=== PATIENT | female | born 1935 | race Caucasian/White ===

== ENCOUNTER 2023-02-16 14:18 | Emergency (ER) | payer OTHER ==
[~2023-02-16] VITALS: Ht 154.9 cm; Wt 49.0 kg
[2023-02-16 14:24] VITALS: O2SAT 99
[2023-02-16] MEDS ORDERED: SODIUM CHLORIDE 0.9% 1,000 ML IV ONE (15:00)
[2023-02-16 15:30] LABS: BASOPHILS % 0.1 % (0.0-2.0); EOSINOPHILS % 0.1 % (0.0-5.0); HEMATOCRIT. 39.2 % (36.0-48.0); HEMOGLOBIN. 13.3 g/dL (12.0-16.0); LYMPHOCYTES % 8.8 % (20.0-50.0); MEAN CORPUSCULAR HEMOGLOBIN 31.1 pg (28.0-32.0); MEAN CORPUSCULAR VOLUME 91.8 fL (81.0-99.0); MONOCYTES % 2.5 % (2.0-8.0); NEUTROPHILS % 88.5 % (40.0-76.0); PLATELET 169 x1000/uL (130-400); RED BLOOD CELL COUNT 4.27 mill/uL (4.2-5.4); RED CELL DISTRIBUTION WIDTH 14.1 % (11.6-14.6)
[2023-02-16 15:40] LABS: CHLORIDE 109 mEq/L (98-107); PROTHROMBIN TIME 10.9 sec (9.6-11.0)
[2023-02-16] MEDS ORDERED: ACETAMINOPHEN 325MG TABLET PO ONE (16:15)
[2023-02-16] MEDS ORDERED: POLYETHYLENE GLYCOL-ELECTROLYTE 4000ML PO ONE (16:15)
[2023-02-16] MEDS ORDERED: MAGNESIUM CITRATE 300ML SOLUTION PO NR (17:30)
[2023-02-16] MEDS ORDERED: POLYETHYLENE GLYCOL 3350 (17GM) 1 DOSE PACK PO NR (17:45)
[2023-02-16 18:30] VITALS: TEMP 98.1
[2023-02-16 19:06] LABS: CLARITY URINE TURBID (CLEAR); COLOR URINE YELLOW (YELLOW); KETONES URINE NEGATIVE (NEGATIVE); LEUKOCYTE ESTERASE URINE 2+ (NEGATIVE); NITRITE URINE NEGATIVE (NEGATIVE); OCCULT BLOOD URINE 3+ (NEGATIVE); PROTEIN URINE 1+ (NEGATIVE); SPECIFIC GRAVITY URINE 1.021 (1.005-1.030)
[2023-02-16] MEDS ORDERED: DOCU-138 MT (21:07)
[2023-02-16] MEDS ORDERED: TOPUD MT (21:07)
[2023-02-16] MEDS ORDERED: SENN25TA MT (21:07)
[2023-02-17] MEDS ORDERED: CEFTRIAXONE 1GM PREMIX 50 ML IV ONE (00:30)
[2023-02-17 02:00] VITALS: BP 137/65; PULSE 79; RESP 14
== END 2023-02-17 03:08 | disposition short-term general hospital (02) ==
LOC: ER 16:26
DX: R10.84 Generalized abdominal pain (principal); K56.41 Fecal impaction; N39.0 Urinary tract infection, site not specified
CPT/HCPCS: 99285; 74176; 96361; 80053; 81003; 83690; 85025; 85610; 36415; 96365; J0696